=== PATIENT | female | born 1930 | race African-American/Black ===

== ENCOUNTER 2020-05-24 17:35 | Emergency (ER) | payer MEDICARE, MEDICAID ==
[~2020-05-24] VITALS: Ht 157.5 cm; Wt 45.0 kg
[~2020-05-24 17:35] MED LIST: AMIO200T PO; AMLO2.5T45 PO; ASPI-1497 PO; CARV6.2548 PO; CEPH250C2 PO; FURO40TA5 PO; GLIP5TAB12 PO; MECL-159 PO; METH4TAB17 PO; P20 PO; SIMV-43 PO; TRAM50TA3 PO
[2020-05-24] MEDS ORDERED: METHOCARBAMOL 500MG TABLET PO ONE (18:00)
[2020-05-24] MEDS ORDERED: ACETAMINOPHEN 325MG TABLET PO ONE (18:00)
[2020-05-24] MEDS ORDERED: ACET-2708 MT (20:15)
[2020-05-24] MEDS ORDERED: METH-653 MT (20:15)
[2020-05-24] MEDS ORDERED: CARVEDILOL 6.25 MG TABLET PO ONE (21:00)
[2020-05-24] MEDS ORDERED: HYDROCODONE/ACETAMINOPHEN 5/325MG TABLET PO ONE (22:00)
[2020-05-24] MEDS ORDERED: HYDRALAZINE HCL 25MG TABLET PO ONE (22:45)
[2020-05-24 23:26] VITALS: BP 186/94
== END 2020-05-24 23:27 | disposition home or self-care (01) ==
LOC: ER 17:35
DX: M54.2 Cervicalgia (principal); I10 Essential (primary) hypertension; E78.00 Pure hypercholesterolemia, unspecified; Z88.5 Allergy status to narcotic agent; Z88.6 Allergy status to analgesic agent; Z79.899 Other long term (current) drug therapy; Z98.890 Other specified postprocedural states; Z86.73 Personal history of transient ischemic attack (TIA), and cerebral infarction without residual deficits
CPT/HCPCS: 72040; 93005; 99285